=== PATIENT | male | born 1975 | race African-American/Black ===

== ENCOUNTER 2022-03-09 21:20 | Emergency (ER) | payer BC, OTHER ==
[~2022-03-09] VITALS: Ht 177.8 cm; Wt 81.0 kg
[2022-03-09] MEDS ORDERED: LIDOCAINE 1% HCL (LOCAL ANESTH.) INJ 20ML MDV ID ONE (23:00)
[2022-03-10 01:00] VITALS: BP 146/98
== END 2022-03-10 01:00 | disposition home or self-care (01) ==
LOC: ER 21:26
DX: S81.011A Laceration without foreign body, right knee, initial encounter (principal); W01.0XXA Fall on same level from slipping, tripping and stumbling without subsequent striking against object, initial encounter; Y93.89 Activity, other specified; Y92.89 Other specified places as the place of occurrence of the external cause; Y99.8 Other external cause status
CPT/HCPCS: 12005; 73562